=== PATIENT | female | born 1975 | race Caucasian/White ===

== ENCOUNTER 2023-10-20 06:32 | Inpatient (IN) | payer BC, OTHER ==
[~2023-10-20] VITALS: Ht 167.6 cm; Wt 90.9 kg
[2023-10-20] VITALS (9 sets, daily range): BP systolic 111–137; BP diastolic 62–82; PULSE 74–91; RESP 13–17; TEMP 98; O2SAT 92–97
[2023-10-20] MEDS ORDERED: piperacillin/tazo 3.375gm/50ml 50 ML IV ONE (07:15)
[2023-10-20] MEDS ORDERED: potassium Cl 20 mEq SR tablet PO PRN ×2 (08:05)
[2023-10-20] MEDS ORDERED: morphine 2 MG/ML inj. syringe IV PRN ×3 (08:05→11:55)
[2023-10-20] MEDS ORDERED: potassium Cl 40MEQ/1/2NS 520ml 520 ML IV PRN (08:05)
[2023-10-20] MEDS ORDERED: magnesium 4gm in 100ml NS 100 ML IV PRN (08:05)
[2023-10-20] MEDS ORDERED: HYDROcodone/acetaminophen 5mg/325mg tablet PO PRN ×2 (08:05→13:05)
[2023-10-20] MEDS ORDERED: acetaminophen 325mg tablet PO PRN (08:05)
[2023-10-20] MEDS ORDERED: magnesium 2GM in 50ml NS 50 ML IV PRN (08:05)
[2023-10-20] MEDS ORDERED: HYDROcodone/acetaminophen 10/325mg tab PO PRN (08:05)
[2023-10-20] MEDS ORDERED: mag hydrox/Alum hydrox/simeth 30ml oral suspension PO PRN (08:05)
[2023-10-20] MEDS ORDERED: magnesium hydroxide 30ml (MOM) UD suspension PO PRN (08:05)
[2023-10-20] MEDS ORDERED: ondansetron/PF 4mg/2ml inj IV PRN ×2 (08:05→11:55)
[2023-10-20] MEDS ORDERED: magnesium Cl slow-release 64mg tablet PO PRN (08:05)
[2023-10-20] MEDS ORDERED: normal saline 1000ml 1,000 ML IV SCH (08:15)
[2023-10-20] MEDS ORDERED: pantoprazole 40 MG vial IV STA (08:48)
[2023-10-20 09:26] LABS: BASOPHILS # (AUTO) 0.1 X10'3 (0-0.2); BASOPHILS % (AUTO) 1.4 % (0-1); EOSINOPHILS # (AUTO) 0.1 X10'3 (0-0.9); EOSINOPHILS % (AUTO) 1.5 % (0-6); HEMATOCRIT 31.9 % (35.0-45.0); HEMOGLOBIN 10.4 g/dl (12.0-16.0); LYMPHOCYTES # (AUTO) 1.4 X10'3 (1.1-4.8); LYMPHOCYTES % (AUTO) 17.5 % (21-51); MEAN CORPUSCULAR HEMOGLOBIN 27.9 PG (27.0-31.0); MEAN CORPUSCULAR HGB CONC 32.7 g/dL (33.0-36.5); MEAN CORPUSCULAR VOLUME 85.4 FL (78-98); MEAN PLATELET VOLUME 8.4 FL (7.4-10.4); MONOCYTES # (AUTO) 0.4 X10'3 (0-0.9); MONOCYTES % (AUTO) 5.1 % (2-12); NEUTROPHILS # (AUTO) 5.8 X10'3 (1.8-7.7); NEUTROPHILS % (AUTO) 74.5 % (42-75); PLATELET COUNT 270 X10'3 (140-440); RED BLOOD COUNT 3.74 X10'6 (4.20-5.60); RED CELL DISTRIBUTION WIDTH 16.6 % (11.5-14.5); WHITE BLOOD COUNT 7.8 X10'3 (4.5-11.0)
[2023-10-20 09:35] LABS: INR 0.9 INR; PROTHROMBIN TIME 10.2 SECONDS (9.0-12.0)
[2023-10-20 09:46] LABS: ALANINE AMINOTRANSFERASE 26 U/L (12-78); ALBUMIN 3.1 G/DL (3.4-5.0); ALBUMIN/GLOBULIN RATIO 0.7 (1.1-1.5); ALKALINE PHOSPHATASE 83 IU/L (46-116); ANION GAP 11 (8-16); ASPARTATE AMINO TRANSFERASE 18 U/L (10-37); BILIRUBIN,TOTAL 0.4 MG/DL (0.1-1.0); BLOOD UREA NITROGEN 9 MG/DL (7-18); CALCIUM 8.5 MG/DL (8.5-10.1); CHLORIDE 102 MMOL/L (99-107); CREATININE 0.82 MG/DL (0.40-0.90); GLUCOSE 99 MG/DL (70-104); LIPASE 27 U/L (16-77); SODIUM 138 MMOL/L (135-145); TOTAL CARBON DIOXIDE 24.9 MMOL/L (24-32); TOTAL PROTEIN 7.4 G/DL (6.4-8.2); eCRCL 79 ML/MIN; eGFR 75 ML/MIN
[2023-10-20 09:48] LABS: POTASSIUM 2.8 MMOL/L (3.5-5.1)
[2023-10-20] MEDS ORDERED: pantoprazole 40 MG vial IV SCH (10:15)
[2023-10-20] MEDS ORDERED: ringers solution, lacted 1,000 ML IV SCH (11:55)
[2023-10-20] MEDS ORDERED: meperidine/PF 25mg/ml syringe IV PRN ×3 (11:55)
[2023-10-20] MEDS ORDERED: hydrALAZINE 20mg/ml inj. IV PRN (11:55)
[2023-10-20] MEDS ORDERED: acetaminophen 1,000mg/100ml IV 100 ML IV ONE (11:55)
[2023-10-20] MEDS ORDERED: labetalol 20mg/4ml (5mg/ml) syringe IV PRN (11:55)
[2023-10-20] MEDS ORDERED: proCHLORperazine 10 MG/2 ml inj IV PRN (11:55)
[2023-10-20] MEDS ORDERED: ketorolac trometh. 30mg/ml inj. IV ONE (11:55)
[2023-10-20] MEDS ORDERED: morphine 4 MG/ML inj SYRINge IV PRN (11:55)
[2023-10-20] MEDS ORDERED: midazolam 1 mg/ML 2ml injection ONE (12:06)
[2023-10-20] MEDS ORDERED: fentaNYL /PF 50mcg/ml 5ml ampule ONE (12:06)
[2023-10-20] MEDS ORDERED: BUPIVAcaine/PF 2.5mg/ml (0.25%) 10ml vial ONE (12:26)
[2023-10-20] MEDS ORDERED: LIDOcaine 1% (10mg/ml)w/preservative inj. 20ml MDV ONE (12:26)
[2023-10-20] MEDS ORDERED: LIDOCAINE 1% w/preservative (10 MG/ML) inj. 10mL VIAL IJ ONE (12:43)
[2023-10-20] MEDS ORDERED: BUPIVAcaine/PF 2.5mg/ml (0.25%) 10ml vial IJ ONE (12:44)
[2023-10-20] MEDS ORDERED: LIDOcaine 2% (20mg/ml) 5ml vial ONE (13:00)
[2023-10-20] MEDS ORDERED: dexamethasone sod phosphate 4mg/ml inj. ONE (13:00)
[2023-10-20] MEDS ORDERED: rocuronium 10mg/ml inj IV ONE (13:00)
[2023-10-20] MEDS ORDERED: ondansetron/PF 4mg/2ml inj ONE (13:00)
[2023-10-20] MEDS ORDERED: ceFOXitin 1000 MG inj ONE (13:00)
[2023-10-20] MEDS ORDERED: propofol inj 20 ML IV ONE (13:00)
[2023-10-20] MEDS ORDERED: sugammadex 200mg/2ml injection IV ONE (13:01)
[2023-10-20 13:12] LABS: % IRON SATURATION 10 % (11-46); IRON 35 UG/DL (49-151); TOTAL IRON BINDING CAPACITY 366 UG/DL (259-388)
[2023-10-20 13:32] LABS: THYROID STIMULATING HORMONE 2.26 ulU/ml (0.34-4.50)
[2023-10-20] MEDS ORDERED: HYDROcodone/acetaminophen 5mg/325mg tablet PO ONE (13:45)
[2023-10-20] MEDS ORDERED: piperacillin/tazo 3.375gm/50ml 50 ML IV SCH (14:00)
[2023-10-20 16:13] LABS: CHOL/HDL RATIO 4.3 (0.00-4.99); CHOLESTEROL 254 MG/DL (0-200); HDL CHOLESTEROL 59 MG/DL (35-60); LDL CHOLESTEROL 148 MG/DL (50-100); TRIGLYCERIDES 181 MG/DL (20-135)
[2023-10-20] MEDS ORDERED: docusate sod 100mg capsule PO SCH (20:00)
[2023-10-20] MEDS ORDERED: K and/or MAG REPLACEMENT MC SCH (20:00)
[2023-10-21] MEDS ORDERED: levoTHYROXINE 88mcg tablet PO SCH (07:00)
[2023-10-21] MEDS ORDERED: triamterene/HCTZ 37.5/25mg tablet PO SCH (08:00)
[2023-10-21] MEDS ORDERED: losartan 50mg tablet PO SCH (08:00)
== END 2023-10-20 15:18 | disposition home or self-care (01) | DRG 399 ==
LOC: ER 06:32 → ED HOLD 08:22 → EDBEDREQ 09:15 → PACU 12:00
PROVIDERS: ADMIT Internal Medicine; ATTEND Internal Medicine
PROC: 8E0W4CZ Robotic Assisted Procedure of Trunk Region, Percutaneous Endoscopic Approach (ICD-10-PCS; 2023-10-20)
PROC: 0DTJ4ZZ Resection of Appendix, Percutaneous Endoscopic Approach (ICD-10-PCS; principal; 2023-10-20 11:56)
DX: K35.80 Unspecified acute appendicitis (principal); E78.00 Pure hypercholesterolemia, unspecified; I10 Essential (primary) hypertension; E03.9 Hypothyroidism, unspecified; K21.9 Gastro-esophageal reflux disease without esophagitis; E87.6 Hypokalemia; D64.9 Anemia, unspecified; Z87.891 Personal history of nicotine dependence
CPT/HCPCS: 36415; 80053; 80061; 82607; 83540; 83550; 83690; 83735; 84443; 85025; 85610; 86885; 86900; 86901; 99285; A4215; A4618; C9113; J0131; J0694; J1100; J2250; J2405; J2543; J2704; J3010; J3490; J7030